=== PATIENT | female | born 1960 | race Caucasian/White ===

== ENCOUNTER 2017-08-28 12:19 | Emergency (ER) | payer BC ==
[~2017-08-28] VITALS: Ht 162.6 cm; Wt 66.8 kg
[2017-08-28 14:45] LABS: HEMOGLOBIN 15.2 G/DL (11.9-15.5); MCH 30.7 PG (29.0-34.0); MCHC 33.8 G/DL (30.0-36.0); MCV 90.9 FL (83-99); PLATELET COUNT 283 K/uL (156-360); RBC DIS.WIDTH-CV 12.7 % (11.8-14.6); RBC DIS.WIDTH-SD 41.4 % (39-53); RED BLOOD COUNT 4.95 M/uL (3.80-5.20); WHITE BLOOD COUNT 8.5 K/uL (4.1-10.2)
[2017-08-28 14:52] LABS: CHLORIDE 106 mEq/L (99-109); SODIUM 144 mEq/L (136-147)
[2017-08-28 14:54] LABS: GLUCOSE 94 mg/dL (70-99)
[2017-08-28 14:55] LABS: APPEARANCE SL.HAZY ((CLEAR)); BILIRUBIN NEGATIVE; BLOOD NEGATIVE; COLOR YELLOW ((YELLOW)); GLUCOSE (STRIP) NEGATIVE; KETONES 20; LEUKOCYTES LARGE; NITRITE NEGATIVE; PROTEIN (STRIP) NEGATIVE; SPECIFIC GRAVITY 1.017 (1.000-1.030); UROBILINOGEN 0.2 MG/DL (0.2-1.0)
[2017-08-28 14:58] LABS: CREATININE 0.9 mg/dL (0.6-1.3); GFR ESTIMATE (CALCULATED) > 59 mL/min/
[2017-08-28 14:59] LABS: UREA NITROGEN (BUN) 12 mg/dL (9-23)
[2017-08-28 15:07] LABS: BACTERIA RARE /HPF; EPITHELIAL CELLS 1+ /HPF; MUCUS NONE SEEN /LPF; WHITE BLOOD CELLS TNTC /HPF (0-5)
[2017-08-28 15:16] LABS: AMPHETAMINE NEGATIVE (500 ng/mL); BARBITURATES NEGATIVE (200 ng/mL); BENZODIAZEPINES PRESUMPTIVE POSITIVE (150 ng/mL); BUPRENORPHINE NEGATIVE (10 ng/mL); COCAINE NEGATIVE (150 ng/mL); METHADONE NEGATIVE (200 ng/mL); METHAMPHETAMINE NEGATIVE (500 ng/mL); OPIATES (MORPHINE) NEGATIVE (100 ng/mL); OXYCODONE NEGATIVE (100 ng/mL); PHENCYCLIDINE NEGATIVE (25 ng/mL); PROPOXYPHENE NEGATIVE (300 ng/mL); THC CANNABINOIDS NEGATIVE (50 ng/mL); TRICYCLIC ANTIDEPRESSANTS NEGATIVE (300 ng/mL)
[2017-08-28 15:52] LABS: BENZODIAZEPINES, URINE SCREEN POSITIVE (200 ng/mL)
[2017-08-28] MEDS ORDERED: ATIVAN1 MG PO (16:08)
[2017-08-28] MEDS ORDERED: KEFLEX500 MG PO (16:14)
[2017-08-28 16:16] VITALS: BP 132/99
== END 2017-08-28 16:18 | disposition home or self-care (01) ==
LOC: EME 12:19
PROVIDERS: Nurse Practitioner Family
DX: F32.9 Major depressive disorder, single episode, unspecified (principal); N39.0 Urinary tract infection, site not specified; F43.21 Adjustment disorder with depressed mood; F41.1 Generalized anxiety disorder; Z62.810 Personal history of physical and sexual abuse in childhood; Z85.41 Personal history of malignant neoplasm of cervix uteri; Z88.5 Allergy status to narcotic agent
CPT/HCPCS: 80048; 81003; 84999; 85027; 90839; 99281; 99284

== ENCOUNTER 2017-08-30 12:07 | Inpatient (IN) | payer BC ==
[~2017-08-30] VITALS: Ht 162.6 cm; Wt 63.7 kg
[~2017-08-30 12:07] MED LIST: ATIVAN1 MG PO; KEFLEX500 MG PO
[2017-08-30 13:18] LABS: HEMATOCRIT 43.3 % (36.0-46.0); HEMOGLOBIN 14.9 G/DL (11.9-15.5); MCHC 34.4 G/DL (30.0-36.0); MCV 90.2 FL (83-99); PLATELET COUNT 285 K/uL (156-360); RBC DIS.WIDTH-CV 12.9 % (11.8-14.6); RBC DIS.WIDTH-SD 42.4 % (39-53); WHITE BLOOD COUNT 8.8 K/uL (4.1-10.2)
[2017-08-30 13:28] LABS: CHLORIDE 107 mEq/L (99-109); POTASSIUM 4.2 mEq/L (3.7-5.4); SODIUM 141 mEq/L (136-147)
[2017-08-30 13:30] LABS: GLUCOSE 113 mg/dL (70-99)
[2017-08-30 13:33] LABS: SERUM ETHYL ALCOHOL < 10 mg/dL
[2017-08-30 13:34] LABS: GFR ESTIMATE (CALCULATED) > 59 mL/min/
[2017-08-30 13:36] LABS: UREA NITROGEN (BUN) 15 mg/dL (9-23)
[2017-08-30 13:37] LABS: ACETAMINOPHEN (TYLENOL) < 10 mcg/mL (10-30); SALICYLATE < 5.0 MG/DL (15-30)
[2017-08-30 13:52] LABS: AMPHETAMINE NEGATIVE (500 ng/mL); BARBITURATES NEGATIVE (200 ng/mL); BENZODIAZEPINES PRESUMPTIVE POSITIVE (150 ng/mL); BUPRENORPHINE NEGATIVE (10 ng/mL); COCAINE NEGATIVE (150 ng/mL); METHADONE NEGATIVE (200 ng/mL); METHAMPHETAMINE NEGATIVE (500 ng/mL); OPIATES (MORPHINE) NEGATIVE (100 ng/mL); OXYCODONE NEGATIVE (100 ng/mL); PHENCYCLIDINE NEGATIVE (25 ng/mL); PROPOXYPHENE NEGATIVE (300 ng/mL); THC CANNABINOIDS NEGATIVE (50 ng/mL)
[2017-08-30 14:24] LABS: BENZODIAZEPINES, URINE SCREEN POSITIVE (200 ng/mL)
[2017-08-30 14:36] LABS: TRICYCLIC ANTIDEPRESSANTS NEGATIVE (300 ng/mL)
[2017-08-30] MEDS ORDERED: PAXIL40 MG PO (18:33)
[2017-08-30] MEDS ORDERED: REMERON15 M2 PO (18:34)
[2017-08-30] MEDS ORDERED: XANAX1 MG PO (18:36)
[2017-08-30] MEDS ORDERED: INDERAL10 MG PO (18:37)
[2017-08-30] MEDS ORDERED: NATURAL BALANCE15 M1 BOTH EYES (18:48)
[2017-08-30 19:12] VITALS: BP 118/82
[2017-08-31 08:32] VITALS: BP 103/56
[2017-08-31 12:25] LABS: FOLIC ACID (FOLATE) > 22.0 NG/ML (5.0-22.0)
[2017-08-31 15:58] VITALS: BP 123/76
[2017-08-31 22:24] VITALS: BP 103/59
[2017-09-01 08:26] VITALS: BP 124/72
[2017-09-01 16:46] VITALS: BP 105/59
[2017-09-02 07:49] VITALS: BP 128/74
[2017-09-02 16:46] VITALS: BP 117/72
[2017-09-03 07:50] VITALS: BP 141/77
[2017-09-03 16:04] VITALS: BP 127/68
[2017-09-04 08:01] VITALS: BP 117/63
[2017-09-04 16:59] VITALS: BP 121/66
[2017-09-05 08:33] VITALS: BP 115/67
[2017-09-06 08:00] VITALS: BP 118/64
[2017-09-06 16:31] VITALS: BP 118/67
[2017-09-07 07:49] VITALS: BP 112/68
[2017-09-07 15:26] VITALS: BP 120/72
[2017-09-08 08:01] VITALS: BP 107/65
[2017-09-08 15:32] VITALS: BP 131/72
[2017-09-09 09:32] VITALS: BP 110/66
[2017-09-09] MEDS ORDERED: ARIPIPRAZOLE2 MG PO (09:50)
[2017-09-09] MEDS ORDERED: CLONAZEPAM1 MG PO ×2 (09:50→09:54)
[2017-09-09] MEDS ORDERED: EFFEXOR75 MG PO (09:50)
== END 2017-09-09 11:41 | disposition home or self-care (01) | DRG 880 ==
LOC: EME 12:07 → 1WEST 16:42 → EDOF 16:42 → ENRESERV 17:11 → 1WEST 17:53
PROVIDERS: Emergency Medicine; Psychiatry & Neurology Psychiatry
DX: F41.1 Generalized anxiety disorder (principal); F41.0 Panic disorder [episodic paroxysmal anxiety]; F33.9 Major depressive disorder, recurrent, unspecified; R45.851 Suicidal ideations; N39.0 Urinary tract infection, site not specified
CPT/HCPCS: 80048; 81003; 82607; 82746; 84443; 84999; 85027; 90839; 97150 GO; 97166 GO; 99281; 99284; 99285; G0480